=== PATIENT | female | born 1990 | race African-American/Black ===

== ENCOUNTER 2016-12-25 22:44 | Emergency (ER) | payer SELFPAY ==
[~2016-12-25] VITALS: Ht 175.3 cm; Wt 58.0 kg
[2016-12-25 22:46] VITALS: BP 123/79
== END 2016-12-26 02:07 | disposition left against medical advice (07) ==
LOC: EMS 22:47
DX: H92.02 Otalgia, left ear (principal); F17.210 Nicotine dependence, cigarettes, uncomplicated; Z53.21 Procedure and treatment not carried out due to patient leaving prior to being seen by health care provider